=== PATIENT | female | born 1960 | race Caucasian/White ===

== ENCOUNTER 2023-05-22 08:12 | Observation (INO) ==
--- NOTE | 2023-04-12 12:24 | PAT Medication Instructions ---
Medication Instructions Date of Service April 12, 2023 Home Medications calcium carbonate 500 mg calcium (1,250 mg) chewable tablet 500 mg PO DAILY PRN Heartburn cholecalciferol (vitamin D3) 125 mcg (5,000 unit) tablet (Vitamin D3) 125 mcg PO DAILY omega 4-icp-ffm-fish oil 1,000 mg (120 mg-180 mg) capsule (Fish Oil) 1 cap PO DAILY turmeric root extract 500 mg capsule 500 mg PO DAILY vitamin B complex 1 cap PO DAILY STOP taking 2 weeks before surgery (or as soon as possible if surgery is within 2 weeks) omega 2-bds-zxx-fish oil 1,000 mg (120 mg-180 mg) capsule (Fish Oil) 1 cap PO DAILY turmeric root extract 500 mg capsule 500 mg PO DAILY DO NOT take the morning of surgery calcium carbonate 500 mg calcium (1,250 mg) chewable tablet 500 mg PO DAILY PRN Heartburn cholecalciferol (vitamin D3) 125 mcg (5,000 unit) tablet (Vitamin D3) 125 mcg PO DAILY vitamin B complex 1 cap PO DAILY Other Notes If you have any questions please call us at [phone] or [phone] or [phone] or [phone]
--- NOTE | 2023-04-20 12:51 | Anesthesiology Consultation ---
Date of Service April 20, 2023 Assessment & Plan (1) Encounter for pre-operative examination: - Infectious disease screening: Per assessment on 04/20/23: No known infectious disease contacts or current infectious disease symptoms. No noted recent Covid positive test result. - Outpatient joint assessment: Pt currently scheduled for inpatient pathway. If surgeon requests review for outpatient joint pathway, patient is not recommended candidate for outpatient joint program from anesthesia standpoint based on available information. - S/P Left TKA (01/30/12): SAB + regional at [facility] - Patient acceptable risk for surgery pending surgeon-ordered PCP preop evaluation (Renee VALLES/[place], appt 05/02). Chart Review Chart Review: Patient seen in Pre Admission Testing Teaching & Discussion Pre-Anesthesia Teaching/Discussion Notes: Instructed NPO after midnight before surgery,except medications with 15 cc of water. Medication instructions provided according to the PAT guidelines. History Surgery Operation Date: 05/22/23 08:15 Proposed Procedures p Right Total Knee Arthroplasty - Sam Conteh, Height/Weight Height: 5 ft 9 in Weight: 122.3 kg Allergies Allergy/AdvReac Type Severity Reaction Status Date / Time adhesive Allergy Unknown Itchy, Verified 04/18/23 12:35 burning skin Medications Home Medications Medication Instructions Recorded Confirmed Last Taken calcium carbonate 500 mg calcium 500 mg PO DAILY PRN Heartburn 04/10/23 04/10/23 Unknown (1,250 mg) chewable tablet cholecalciferol (vitamin D3) 125 125 mcg PO DAILY 04/10/23 04/10/23 Unknown mcg (5,000 unit) tablet (Vitamin D3) omega 7-fym-tyv-fish oil 1,000 mg 1 cap PO DAILY 04/10/23 04/10/23 Unknown (120 mg-180 mg) capsule (Fish Oil) turmeric root extract 500 mg 500 mg PO DAILY 04/10/23 04/10/23 Unknown capsule vitamin B complex 1 cap PO DAILY 04/10/23 04/10/23 Unknown Past Medical History Medical History BPV (benign positional vertigo) No recent issues Frequent UTI Approximately 3 times/year History of COVID-19 11/2022: mild flu-like symptoms Hx of gastric ulcer As a child, no issues since Hx of heartburn Obesity Osteoarthritis Sleep apnea "Mild, borderline" Unable to tolerate CPAP Exercise / Class Metabolic Activity II 4-5 Yardwork/Stairs/Walk up hill (one FS: No CP, no SOB) Past Family History Family History Other No family history of adverse response to anesthesia Past Surgical History Surgical History History of bilateral tubal ligation History of cholecystectomy History of colonoscopy History of dilatation and curettage History of esophagogastroduodenoscopy (EGD) History of total left knee replacement (TKR) Left TKA (01/30/12): SAB + regional at [facility] Nausea and vomiting after administration of anesthetic agent S/P lumbar laminectomy S/P right knee arthroscopy with meniscus repair S/P LINDSAY (total abdominal hysterectomy) + unilateral oopherectomy Past Anesthesia History No Hx of Anesthesia Complications and No Family Hx of Anesthesia Complications (except multiple family members with post-op nausea) History of PONV History of PONV and Hx of Motion Sickness (Mild) Social History Smoking Status: Never smoker Do You Dip or Chew Tobacco: No Hx Alcohol Use: Yes alcohol intake frequency: holidays/special occasions only Hx Substance Use: No substance use type: does not use Review of Systems Patient denies chest pain, shortness of breath, dyspnea on exertion, fever, chills, cough, wheezing, palpitations. Physical Exam Vital Signs BP 137/86 P 69 TEMP 98.1 SP02 95%RA RESP 18 Physical Full cervical extension range of motion. Full TMJ range of motion. TMD 3.5 finger breaths Mallampati Score 2 Dentition: several missing (molars), + bridge (right upper + lower sides) Lungs: clear throughout to auscultation Cardiac: regular rate and rhythm, no murmurs noted Spine: normal Carotid arteries: negative bruit Extremities: no LE edema Lab Results Anesthesia Preop Results Results Anesthesia Widget: WBC 5.69 K/ul (4.8-10.8) 04/20/23 Hgb 13.8 g/dl (12.0-16.0) 04/20/23 Hct 41.1 % (37.0-47.0) 04/20/23 Plt 221 K/uL (130-400) 04/20/23 Na 140 mmol/L (136-145) 04/20/23 K 3.9 mmol/L (3.5-5.1) 04/20/23 Cl 105 mmol/L (98-107) 04/20/23 CO2 29 mmol/L (21-32) 04/20/23 BUN 15 mg/dl (6-23) 04/20/23 Creat 0.87 mg/dl (0.6-1.2) 04/20/23 Glucose Level 96 mg/dl (70-99(Fasting)) 04/20/23 PT 10.5 Seconds (9.0-12.0) 04/20/23 PTT 27 Seconds (21-31) 04/20/23 INR 1.0 (0.9-1.1) 04/20/23 HA1c 6.2 % (4.5-5.6) H 04/20/23 Blood Type O Positive 04/20/23 Antibody Screen NEGATIVE 04/20/23 Testing Electrocardiogram Date: 04/20/23 NSR at 72bpm. "Normal ECG" No significant change compared to 01/12/2012 per homeopathic doctor comparison.
--- NOTE | 2023-04-30 10:15 | History & Physical Report ---
Date of Service April 30, 2023 date of surgery: 05/22/23 Procedure: Right Total Knee Arthroplasty Surgeon: Sam Conteh, DO Assessment & Plan (1) Arthritis of right knee: Plan: Further care discussed with patient and at this point in time has failed conserv ative measures and would like to proceed with a right total knee replacement. Plan on discharge will be home with home health physical therapy. DVT prophylaxiswith TEDs, SCDs and will also place on aspirin 81 mg p.o. b.i.d. for a month postop. Patient will have follow up appointment in our office two weeks post op for staple/suture removal and re-evaluation. Patient otherwise has no other questions or concerns. The risks and benefits have been discussed including, but not limited to, risk of infection, nerve injury, stiffness, loss of motion, failure to improve, etc. Reasonable outcomes and options of treatment were discussed. An explanation of appropriate alternatives to the procedure that may be advantageous were discussed and their risks and benefits, as well as the risks and benefits of not proceeding with treatment. I offered to answer any additional inquiries concerning the treatment involved. All the patient's questions were answered. The patient is agreeable, understanding of the treatment plan and alternatives, and wishes to proceed with the treatment plan. Please note the above document was generated using voice recognition software. It may contain grammatical, syntax or spelling errors. Any formal questions or concerns about the content, text or information contained within the body of this dictation should be directly addressed to the provider for clarification History of Present Illness Chief Complaint: Right knee pain Primary Care Provider: NO PCP Dasha is a 62-year-old female who presented for preop evaluation prior to upcoming right total knee arthroplasty. Her pain is now affecting her daily activities including walking standing, she is tried oral anti-inflammatories and Tylenol with no improvement, she is also undergone previous cortisone injection as well as viscosupplementation. At this point time x-rays show advanced degenerative changes to the right knee with [id number]-rs-tuds medial compartment and patellofemoral joint, this point like to proceed with a right total knee arthroplasty Allergies Allergy/AdvReac Type Severity Reaction Status Date / Time adhesive Allergy Unknown Itchy, Verified 04/18/23 12:35 burning skin Home Medications Medication Instructions Recorded Confirmed Type calcium carbonate 500 mg calcium 500 mg PO DAILY PRN Heartburn 04/10/23 04/10/23 History (1,250 mg) chewable tablet cholecalciferol (vitamin D3) 125 125 mcg PO DAILY 04/10/23 04/10/23 History mcg (5,000 unit) tablet (Vitamin D3) omega 0-wis-rle-fish oil 1,000 mg 1 cap PO DAILY 04/10/23 04/10/23 History (120 mg-180 mg) capsule (Fish Oil) turmeric root extract 500 mg 500 mg PO DAILY 04/10/23 04/10/23 History capsule vitamin B complex 1 cap PO DAILY 04/10/23 04/10/23 History Past Med/Surg History Medical History Obesity Hx of heartburn Hx of gastric ulcer As a child, no issues since History of COVID-19 11/2022: mild flu-like symptoms Frequent UTI Approximately 3 times/year Osteoarthritis Sleep apnea "Mild, borderline" Unable to tolerate CPAP BPV (benign positional vertigo) No recent issues Surgical History History of esophagogastroduodenoscopy (EGD) History of colonoscopy S/P lumbar laminectomy History of dilatation and curettage History of bilateral tubal ligation S/P LINDSAY (total abdominal hysterectomy) + unilateral oopherectomy S/P right knee arthroscopy with meniscus repair History of cholecystectomy History of total left knee replacement (TKR) Left TKA (01/30/12): SAB + regional at [facility] Nausea and vomiting after administration of anesthetic agent Family History Other No family history of adverse response to anesthesia Social History Smoking Status: Never smoker Second Hand Exposure: No; Do You Dip or Chew Tobacco: No; Hx Alcohol Use: Yes Hx Substance Use: No Preferred Language: Romanian Communication Ability: Effective Community Organization Worker Required: No Beliefs That Will Affect Care: None Current Living Situation: Spouse Feels Safe at Home: Yes Assistive Devices: Contacts and Glasses Review of Systems Review of Systems: All systems reviewed & are unremarkable except as noted in HPI & below Constitutional: no fever, no chills and no sweats Respiratory: no cough and no dyspnea Cardiovascular: no chest pain, no dyspnea and no orthopnea Gastrointestinal: no abdominal pain, no nausea and no vomiting Musculoskeletal: as per Subjective / HPI Physical Exam Physical Exam: HT: 5ft 9in WT: 122kg Constitutional: WD/WN, vitals as above no acute distress Respiratory: normal respiratory effort, lungs clear to auscultation no respiratory distress, no labored breathing and does not use accessory muscles Cardiovascular: RRR, no murmur, no edema Gastrointestinal (Abdomen): normal bowel sounds, soft, nontender, no hepatosplenomegaly Musculoskeletal: Knee: + knee abnormal to inspection (RIGHT KNEE), + effusion (+1 effusion), + surgical incision (well healed portals), + limited ROM of knee (ROM 0/3/110), + knee ROM with crepitation, + joint line tenderness (medial joint line) and + Whit's sign positive; no deformity, no skin erythema, no ecchymosis, no valgus laxity, no varus laxity, anterior drawer test negative, Raman's sign negative and pivot shift test negative Results & Data Results & Data Diagnostic Findings Right Knee X-ray: Right knee series showing advanced degenerative changes to the right knee, narrowing of the medial compartment and patello-femoral joint with patellar spurring noted, findings showing joint space narrowing of the medial compartment and patello-femoral joint, osteophyte formation and subchondral sclerosis noted. overall varus alignment. no acute bony pathology noted.
[~2023-05-22 08:12] MED LIST: ROPIVACAINE 0.5% 5 MG/ML 30 ML VIAL ONE
[2023-05-22] MEDS ORDERED: fentaNYL citrate PF 100 MCG/2 ML VIAL ONE (09:12)
[2023-05-22] MEDS ORDERED: PROPOFOL IV EMULSION 10 MG/ML 20 ML VIAL IV ONE ×2 (09:12→11:54)
[2023-05-22] MEDS ORDERED: MIDAZOLAM HCL 1 MG/ML 2ML VIAL ONE (09:12)
[2023-05-22] MEDS: LR 500ML BOLUS, THEN 15ML/HR IV SCH (09:24)
[2023-05-22] MEDS: ACETAMINOPHEN 500 MG TAB PO SCH ×2 (09:25→18:08)
[2023-05-22] MEDS: dexAMETHasone**PF** 10 MG/ML VIAL IV SCH (09:25)
[2023-05-22] MEDS: CeleBREX 200 MG CAP PO SCH (09:25)
[2023-05-22] MEDS: LR 60ML/HR IV SCH (09:26)
[2023-05-22] MEDS: GABAPENTIN 600 MG DOSE PO SCH (09:26)
[2023-05-22] MEDS: FAMOTIDINE 20 MG TAB PO SCH (09:26)
--- NOTE | 2023-05-22 09:34 | History & Physical Bridge Note ---
Date of Service May 22, 2023 History & Physical Bridge Note I have examined the patient, reviewed the History & Physical and in the interval since the performance of the History & Physical I have noted the following changes of clinical significance: no changes noted
[2023-05-22] MEDS ORDERED: ATROPINE SULFATE 0.1 MG/ML 10ML SYR IV PRN (10:10)
[2023-05-22] MEDS ORDERED: fentaNYL citrate PF 100 MCG/2 ML VIAL IV PRN (10:10)
[2023-05-22] MEDS ORDERED: DROPERIDOL 5 MG/2 ML VIAL IV PRN (10:10)
[2023-05-22] MEDS ORDERED: ePHEDrine sulfate 50 MG/ML AMP IV PRN (10:10)
[2023-05-22] MEDS ORDERED: HYDROmorphone INJ 1 MG/ML SYRINGE IV PRN ×2 (10:10→13:37)
[2023-05-22] MEDS ORDERED: ONDANSETRON INJ 2 MG/ML 2 ML VIAL IV PRN ×2 (10:10→13:37)
[2023-05-22] MEDS: TRANEXAMIC ACID 1,000 MG **IV Pre-op IV SCH (10:37)
[2023-05-22] MEDS: ceFAZolin 3000MG 3,000 MG/72.5 ML BAG IV SCH (10:52)
[2023-05-22] MEDS: ROPIV 0.5% 246mg, Ketorolac 30mg, EPINEPHrine 0.5mg in NSS INFIL SCH (11:26)
[2023-05-22] MEDS: ORTHO JOINT ANESTHETIC ONE (11:27)
--- NOTE | 2023-05-22 12:04 | Operative Report ---
Post Operative Report Pre & Post Diagnosis Operation Date: 05/22/23 10:00 Pre-Op Diagnosis: Right Knee Osteoarthritis Post-Op Diagnosis: Right Knee Osteoarthritis I identified the patient and participated in the time-out.: Yes Procedure Operation Date: 05/22/23 10:00 Actual Procedures p Right Total Knee Arthroplasty(Right) utilizing [employer] NephPelago journey 2 patient-matched total knee arthroplasty size femur 6 tibia 5 poly 11 patella 29 ednisha- Sam Conteh DO Surgeon Sam Conteh DO Casting Operator Maximiliano GERMAN Estimated Blood Loss 5 Findings Consistent with Post-Op Diagnosis Patient presents with severe end-stage tricompartmental degenerative joint disease varus alignment subchondral sclerosis marginal osteophytes subchondral cystic changes moderate to large effusion Specimens Bone and cartilage Drains Medium bore Hemovac Anesthesia Type MAC Spinal Regional Complications none Disposition Accompanied Patient To Recovery: No Disposition: Recovery Room Indications Patient presents with severe end-stage DJD having failed attempts at conservative management with physical therapy anti-inflammatories relative rest activity modification corticosteroid injection viscosupplementation the above intraoperative findings were noted Description of Procedure After proper prepping and draping of the Right lower extremity anterior midline incision was made over the region of the extensor extensor mechanism after meticulous hemostasis was obtained and maintained in subcutaneous tissues a medial parapatellar incision was made The patella was subluxed lateralward the medial lateral gutter were cleaned from any hypertrophic synovitis and scar tissue of the distal femoral block was placed and the distal femoral osteotomy cut was made subsequently the chamfers anterior and posterior osteotomy cuts were made utilizing the 4-in-1 block the tibia was subsequently subluxed anteriorward medial and ateral meniscal remnants were excised in their entirety remnants of the anterior and posterior cruciate ligaments were excised in their entirety excellent exposure of the proximal tibia was obtained the tibial osteotomy guide was placed on the proximal tibial osteotomy cut was made once again the knee was irrigated with copious amounts of sterile saline solution the patella was subsequently everted lateralward thickened scar tissue around the patella was removed the patella was subsequently cut utilizing a freehand technique and was drilled prepared for final preparation and placement of patella socially flexion-extension gaps were checked and the equal and symmetric trials were placed to the appropriate femoral and tibial trials with poly-spacer being placed for equal flexion and extension gaps and full range of motion including extension to 0 and flexion to 140 the trial components after having been taken to recovery range of motion was subsequently removed meticulous hemostasis was obtained and maintained subsequently a knee block injection of joint cocktail including ropivacaine 0.5% 150 mg. Bupivacaine 0.5% epinephrine 1-200,030 mL's toradol 30 mg dexamethasone 4 mg ketamine 10 mg clonidine 100 micrograms normal saline solution 30 mg was infiltrated into the soft tissues of the posterior knee medial lateral gutters and periosteal synovium special attention was paid to protect neurovascular structures at all times subsequently trial components having been removed the knee was irrigated with sterile saline solution. debris was removed the proximal tibia was subsequently prepared and was made ready for the placement of the tibial component tibial component was also cemented and tamped into position the femoral component was subsequently placed and cemented in the position the patellar component was subsequently cemented in position because hemostasis once again obtained and maintained wound having been thoroughly irrigated with debridement and debridement lavage was performed as well as a medial parapatellar incision closed with #1 Vicryl in interrupted fashion subcutaneous was closed with #2 Vicryl skin was closed with skin clips. PA-C was necessary for prepping and drapping as well as wound closure of deep fascia Sub cutaneous tissue and skin and was necessary for the case. A sterile compressive dressing was placed patient was taken to recovery in stable condition of report dictated by Wero I attest to the content of the Intraoperative Record and any orders documented therein. Any exceptions are noted below.Due to the complex nature of the procedure, the entire surgery was performed with the operational assistance of MAXI Qiu. The registrar assistant, under direct supervision, was involved in the actual performance of all aspects of the surgical procedure including hemostasis, tissue retraction and incision, instrument management, patient positioning, and wound closure. I attest to the content of the Intraoperative Record and any orders documented therein. Any exceptions are noted below.
--- NOTE | 2023-05-22 12:45 | Anesthesiology Progress Note ---
Date of Service May 22, 2023 Anesthesia Post Procedure Vital Signs Vital Signs: Temp Pulse Resp BP Pulse Ox O2 Del Method 05/22/23 09:47 36.6 C 73 20 136/83 94 Room Air Transfer of Care Handoff Completed per policy Notes Mental Status: alert / awake / arousable and participated in evaluation Patient Amnestic to Procedure: Yes Nausea / Vomiting: adequately controlled Pain: adequately controlled Airway Patency, RR, SpO2: stable & adequate BP & HR: stable & adequate Hydration State: stable & adequate Neuraxial Anesthesia: was administered and sensory block is resolving Anesthetic Complications: no major complications apparent and Pt Satisfied with anesthetic care
--- NOTE | 2023-05-22 12:58 | XRay Report ---
XR knee RT 1 or 2V routine HISTORY: 62 years-old Female Surgical Post Op right knee arthroplasty COMPARISON: 01/30/2012 TECHNIQUE: 2 views of the right knee FINDINGS: Total joint arthroplasty with patellar resurfacing. Anterior midline skin kiana with surgical drain age catheter, expected postoperative soft tissue swelling with deep tissue air. No acute fracture, ma lalignment or unexpected opaque foreign body. IMPRESSION: Total joint arthroplasty and patellar resurfacing with expected postoperative changes. ACT 112: Negative or not required by law. The above report was generated using voice recognition software. It may contain grammatical, syntax o r spelling errors. Electronically signed by: Augustus Landis M.D. 05/22/2023 12:57 PM
[2023-05-22] MEDS ORDERED: CALCIUM CARBONATE 500 MG CHEWABLE TAB PO PRN (13:37)
[2023-05-22] MEDS ORDERED: MAGNESIUM HYDROXIDE SUSP 30 ML UDC PO PRN (13:37)
[2023-05-22] MEDS ORDERED: NALOXONE HCL 0.4 MG/1 ML VIAL/CARP IV PRN (13:37)
[2023-05-22] MEDS ORDERED: bisacodyL 10 MG SUPP PR PRN (13:37)
[2023-05-22] MEDS ORDERED: diphenhydrAMINE Capsule 25 MG CAP PO PRN (13:37)
[2023-05-22] MEDS ORDERED: METOCLOPRAMIDE HCL INJ 5 MG/ML 2 ML VIAL IV PRN (13:37)
[2023-05-22] MEDS: SODIUM CHLORIDE 0.9% 1,000 ML IV SCH (13:51)
[2023-05-22] MEDS: TRANEXAMIC ACID 1,000 MG **IV Intra-op IV SCH (13:51)
[2023-05-22] MEDS: KETOROLAC TROMETHAMINE 15 MG/ML VIAL IV SCH (15:32)
[2023-05-22] MEDS: ceFAZolin 2000MG 2,000 MG/15 ML SYR IV SCH (18:08)
[2023-05-22] MEDS: oxyCODONE HCL IR 5 MG TAB (IMMEDIATE RELEASE) PO PRN (18:44)
[2023-05-22] MEDS: ASPIRIN 81 MG ECTAB PO SCH (20:19)
[2023-05-22] MEDS: SENNA 8.6 MG TAB PO SCH (20:20)
[2023-05-22] MEDS: DOCUSATE SODIUM 100 MG CAP PO SCH (20:20)
--- NOTE | 2023-05-23 07:38 | Orthopedic Progress Note ---
Date of Service May 23, 2023 Assessment & Plan (1) History of total right knee replacement: Plan: POD #1 s/p Right TKA pt/ot dvt proph with CRISTOFER/SCD/ASA plan for d/c home with HHPT Admission and Anticipated Discharge Date Admission Date: May 22, 2023 Subjective POD #1 s/p Right TKA Review of Systems Constitutional: no fever, no chills and no sweats Respiratory: no cough and no dyspnea Cardiovascular: no chest pain and no dyspnea Gastrointestinal: no abdominal pain, no nausea and no vomiting Physical Exam Physical Exam: Vital Signs Temp 37.0 C 05/23/23 03:13 Pulse 100 H 05/23/23 03:13 Resp 16 05/23/23 03:13 BP 156/77 H 05/23/23 03:13 Pulse Ox 96 05/23/23 03:13 O2 Del Method Room Air 05/23/23 03:13 Intake & Output 05/22/23 05/23/23 05/23/23 18:59 06:59 18:59 Intake Total 1890.5 / 1890.5 Output Total 145 / 150 5 / 150 Balance 1745.5 / 1740.5 -5 / 1740.5 Weight 121 kg Intake: IV 590.5 / 590.5 Lactated Ringe r's 1,000 ml @ 15 0 / 0 mls/hr IV .Q24 H LISSETH Rx#: [id number] Sodium Chlorid e 0.9% 1,000 ml @ 418 / 418 100 mls/hr IV .Q10H LISSET[facility] Rx#: [id number] Tranexamic Aci d / 0.7% NaCl 1, 100 / 100 000 mg In 100 ml @ 600 mls/hr IV TODAY@0600 LISSETH Rx#:[id number] ceFAZolin 3000 MG 3,000 mg In 72 72.5 / 72.5 .5 ml @ 130 ml s/hr IV PREOP LISSETH Rx#:[id number] IV Perioperative 1300 / 1300 Output: Estimated Blood Loss 5 / 5 Drain Output 140 / 145 5 / 145 Right Knee 140 / 145 5 / 145 Other: # Unmeasured Voi ds 1 1 Weight Measureme nt Method Standing Scale Musculoskeletal: Right Leg: NVDI, calf SNT, negative felicia sign. DP palpable, able to wiggle toes/ankle movement without difficulty. dressing clean dry and intact. Results & Data Vital Signs (Past 12 Hours) Vital Signs Temp Pulse Resp BP Pulse Ox O2 Del Method 05/23/23 03:13 37.0 C 100 H 16 156/77 H 96 Room Air 05/22/23 23:47 37.1 C 99 H 18 146/83 H 94 Room Air Laboratory Results Impressions Knee X-Ray 05/22/23 12:32 XR knee RT 1 or 2V routine HISTORY: 62 years-old Female Surgical Post Op right knee arthroplasty COMPARISON: 01/30/2012 TECHNIQUE: 2 views of the right knee FINDINGS: Total joint arthroplasty with patellar resurfacing. Anterior midline skin kiana with surgical drainage catheter, expected postoperative soft tissue swelling with deep tissue air. No acute fracture, malalignment or unexpected opaque foreign body. IMPRESSION: Total joint arthroplasty and patellar resurfacing with expected postoperative changes. ACT 112: Negative or not required by law. The above report was generated using voice recognition software. It may contain grammatical, syntax or spelling errors. Electronically signed by: Augustus Landis M.D. 05/22/2023 12:57 PM
[2023-05-23 07:39] LABS: Hematocrit (blood only) 35.5 % (37.0-47.0); Hemoglobin 11.6 g/dl (12.0-16.0); Mean Corpuscular Hemoglobin 29.4 pg (25.0-34.0); Mean Corpuscular Hgb Conc 32.7 g/dL (32.0-36.0); Mean Corpuscular Volume 90.1 fL (80.0-100.0); Mean Platelet Volume 11.2 fL (9.4-12.4); Platelet Count 212 K/uL (130-400); RDW Coefficient of Variation 13.1 % (11.5-14.5); RDW Standard Deviation 43.1 fL (36.4-46.3); Red Blood Count 3.94 M/uL (4.20-5.40); White Blood Count 13.21 K/ul (4.8-10.8)
--- NOTE | 2023-05-23 07:39 | Discharge Summary ---
Date of Service date of discharge: May 23, 2023 date of admission: 05/22/23 Admission HPI Per Admitting Provider Dasha is a 62-year-old female who presented for preop evaluation prior to upcoming right total knee arthroplasty. Her pain is now affecting her daily activities including walking standing, she is tried oral anti-inflammatories and Tylenol with no improvement, she is also undergone previous cortisone injection as well as viscosupplementation. At this point time x-rays show advanced degenerative changes to the right knee with [id number] medial compartment and patellofemoral joint, this point like to proceed with a right total knee arthroplasty Principal Diagnosis right knee replacement Discharge Exam Vital Signs Temp 37.0 C 05/23/23 03:13 Pulse 100 H 05/23/23 03:13 Resp 16 05/23/23 03:13 BP 156/77 H 05/23/23 03:13 Pulse Ox 96 05/23/23 03:13 O2 Del Method Room Air 05/23/23 03:13 Intake & Output 05/22/23 05/23/23 05/23/23 18:59 06:59 18:59 Intake Total 1890.5 / 1890.5 Output Total 145 / 150 5 / 150 Balance 1745.5 / 1740.5 -5 / 1740.5 Weight 121 kg Intake: IV 590.5 / 590.5 Lactated Ringer's 1,000 ml @ 15 0 / 0 mls/hr IV .Q24H [facility] Rx#: [id number] Sodium Chloride 0.9% 1,000 ml @ 418 / 418 100 mls/hr IV .Q10H [facility] Rx#: [id number] Tranexamic Acid / 0.7% NaCl 1, 100 / 100 000 mg In 100 ml @ 600 mls/hr IV TODAY@0600 [facility] Rx#:[id number] ceFAZolin 3000MG 3,000 mg In 72 72.5 / 72.5 .5 ml @ 130 mls/hr IV PREOP [facility] Rx#:[id number] IV Perioperative 1300 / 1300 Output: Estimated Blood Loss 5 / 5 Drain Output 140 / 145 5 / 145 Right Knee 140 / 145 5 / 145 Other: # Unmeasured Voids 1 1 Weight Measurement Method Standing Scale Musculoskeletal Right Knee: NVDI, calf SNT, negative felicia sign. DP palpable, able to wiggle toes/ankle movement without difficulty. NIKA dressing clean dry and intact. expected post-operative bruising noted. Discharge Data Allergies Allergy/AdvReac Type Severity Reaction Status Date / Time adhesive Allergy Unknown Itchy, Verified 05/22/23 09:05 burning skin Procedures Performed Operation Date: 05/22/23 10:00 Actual Procedures p Right Total Knee Arthroplasty(Right) - Sam Cole DO Ordered Studies 05/22/23 05:00 US - OR guided needle placemen Routine Hospital Course (1) History of total right knee replacement: POD #1 s/p Right TKA pt/ot dvt proph with CRISTOFER/SCD/ASA plan for d/c home with HHPT Total Time Total Time Spent Total Time Spent (In Minutes): 20 Discharge Plan Discharge Items Patient Disposition: Home - Home Health Services Reason For Visit: Right Knee Osteoarthritis Discharge Diagnosis: RIGHT TOTAL KNEE REPLACEMENT Activity: Per Instructions section Weightbearing Comment: WBAT WITH WALKER Non-emergency contact: Surgeon Call non-emergency contact if: you have any medication questions, your temperature is above 101, your wound has increased redness, your wound has increased drainage and your wound pain has increased Follow-up/Referrals: PCP,NO [Physician] - Diet: Regular Addtl Attending Provider Instructions: ACTIVITY RECOMMENDATIONS: SELF CARE INSTRUCTIONS AFTER TOTAL KNEE REPLACEMENT A. You may need to continue a physical therapy program after discharge from the hospital. There are several options available to you. Your doctor will assist you in selecting the best one for you. 1. An out-patient facility 2 to 3 times a week for therapy or home therapy. 2. Continue working on all exercises taught to you in the hospital. Your goals should be to increase bending of your knee to 90 degrees and beyond and to fully straighten your knee. B. You may progress at your own pace from walking with a walker or crutches to a cane; then to no assistive devices. C. Make walking a part of your daily routine. Be up as much as comfortable with rest periods throughout the day. Rest with leg elevation is very important. Use the ice wrap frequently for the first 3-4 weeks. D. There are no restrictions on activities. You may ride in a car, shop, participate in blackener and all social activities. E. Wear the long elastic stockings (CRISTOFER hose) 20 hours a day for 2 weeks after surgery. They can be removed several times a day for laundering and for a bath. F. You may shower, no tub baths until cleared by your doctor. SPECIAL CARE INSTRUCTIONS: VERY IMPORTANT TO READ AND REVIEW A. There are a few signs you need to watch for after you are home. Call [facility] if you notice any of the followin. Increased severe knee pain. Some pain is expected especially when you exercise. 2. Increased swelling in your leg or knee; pain or swelling of the calf muscle in either lower leg. 3. Any fluid drainage from the incision. 4. Shortness of breath or chest pain. B. Please call [facility] at if you have any concerns or questions about your operation or recovery. The doctor or his nurse will return your call promptly. C. You must take antibiotics before dental work, bladder, bowel or other surgery. Your doctor will provide you with a permanent care to carry describing this precaution. IMPORTANT: * REMEMBER TO TAKE ASPIRIN, 81 MG, TWICE DAILY FOR 4 WEEKS UNLESS OTHERWISE DIRECTED. THIS IS YOUR BLOOD THINNER. * HIGH RISK PATIENTS MAY BE PRESCRIBED A STRONGER BLOOD THINNER. THIS WILL BE PROVIDED AT DISCHARGE. * CALL IF INCREASED PAIN, REDNESS, DRAINAGE OR FEVER GREATER THAT 101. * WEAR CRISTOFER HOSE 20 HOURS PER DAY FOR 2 WEEKS. DRESSING INSTRUCTIONS * NIKA Dressing- This is a large suction dressing covering your incision. This will help pull any excess drainage from the wound and allow your incision to heal properly. You may shower with this if you can keep the unit outside of the shower. If any bleeding or leakage is noted please call your doctor's office. This will remain on your incision for 7 days and then should be removed. This can be done yourself or by the home nursing staff if applicable. The entire unit is disposable once removed. Once removed, keep incision clean and dry. If redness or drainage is noted, please call your surgeon. IF INCISION IS LEAKING THROUGH DRESSING, CALL THE OFFICE . FOLLOW UP VISIT: If appointment is not already scheduled: Please call [facility] to make a follow-up appointment for 2 weeks after your surgery at . Stand-Alone Forms: My [employer], Work/School Release Medications and DC Order Prescriptions: New celecoxib [Celebrex] 200 mg capsule 200 mg PO BID 30 Days Qty: 60 0RF aspirin 81 mg tablet,delayed release (DR/EC) 81 mg PO BID 30 Days Qty: 60 0RF acetaminophen 500 mg tablet 1,000 mg PO Q8 21 Days Qty: 126 0RF cefadroxil 500 mg capsule 500 mg PO BID 14 Days Qty: 28 0RF docusate sodium 100 mg Capsule 100 mg PO BID Qty: 20 0RF oxycodone 5 mg tablet 5 - 10 mg PO Q6H PRN (Reason: pain) Qty: 30 0RF Rx Instructions: ongoing therapy, supervising dr moni cole. max 6 tabs in 24 hours. date of surgery 05/22/23 Continued vitamin B complex Capsule 1 cap PO DAILY calcium carbonate [Tums 500] 500 mg calcium (1,250 mg) Tablet,Chewable 500 mg PO DAILY PRN (Reason: Heartburn) cholecalciferol (vitamin D3) [Vitamin D3] 125 mcg (5,000 unit) Tablet 125 mcg PO DAILY Discontinued turmeric root extract 500 mg Capsule 500 mg PO DAILY omega [id number] oil [Fish Oil] 1,000 mg (120 mg-180 mg) Capsule 1 cap PO DAILY Admission Data Admit Date/Time: 05/22/23 12:32 Attending Provider: Sam Cole Admit Provider: Sam Cole Primary Care Provider: Jerry Reaves
[2023-05-23 08:11] LABS: BUN Creatinine Ratio 26.3 (10-20); Calcium 8.6 mg/dl (8.6-10.3); Creatinine Clr Calc Pharmacy 83.2 ml/min; Est GFR (African American) 73.4 ml/min; Est GFR (Non-African American) 63.3 ml/min; Potassium 3.9 mmol/L (3.5-5.1)
[2023-05-23] MEDS: CHOLECALCIFEROL 125 MCG (5,000 UNITS) TAB PO SCH (08:18)
[2023-05-23] MEDS: MULTIVITAMIN TAB PO SCH (08:18)
[2023-05-23] MEDS: VITAMIN B COMPLEX TAB PO SCH (08:18)
[2023-05-23] MEDS ORDERED: CeleBREX 200 MG CAP PO SCH (21:00)
== END 2023-05-23 11:12 | disposition home health service (06) ==
LOC: 3W 08:12 → ASU 08:12